=== PATIENT | male | born 1955 | race Caucasian/White ===

== ENCOUNTER 2017-03-28 09:42 | Emergency (ER) | payer SELFPAY ==
[2017-03-28 09:43] VITALS: BP 136/88; PULSE 69; RESP 15; TEMP 36.2; O2SAT 97; BMI 30.5
--- NOTE | 2017-03-28 10:10 | RAD_ITS ---
STUDY: X-RAY CHEST REASON FOR EXAM: Male, 61 years old. Chest pain. Anxiety. TECHNIQUE: Single AP portable view of the chest. COMPARISON: None. FINDINGS: EKG electrodes are seen. The lungs are clear and expanded. There is no demonstrated pleural abnormality. Normal size heart. Normal mediastinum and tosin. Normal visualized pulmonary arteries. Normal visualized aortic arch and descending thoracic aorta. Normal visualized thoracic spine. Normal visualized ribs, clavicles, and shoulders. There is no demonstrated abnormality of the visualized soft tissue structures of the upper abdomen. RAD/Chest 1 View (Portable) IMPRESSION: Normal x-ray examination of the chest. Electronically Signed: Geoff Reed MD at 11:03 EST Tel [phone], Service support ,
--- NOTE | 2017-03-28 10:10 | EKG12_ITS ---
Test Reason : TINGLING Blood Pressure : / mmHG Vent. Rate : 063 BPM Atrial Rate : 063 BPM P-R Int : 164 ms QRS Dur : 112 ms QT Int : 408 ms P-R-T Axes : 047 -28 024 degrees QTc Int : 417 ms Normal sinus rhythm Leftward axis Poor R wave progression Inferior DE, age undetermined, cannot be excluded Confirmed by LILY DINERO, KHALIDA ([id number]), assignment editor ARRON LEHMAN ([id number]) on 03/29/2017 9:49:27 AM Referred By: JERSON Confirmed By:KHALIDA BAUTISTA MD
--- NOTE | 2017-03-28 10:12 | ED.VISSUMM ---
- ER Visit Summary Date of Service: 03/28/17 Chief Complaint: [Shortness of breath, chest tingling, palpitations, anxiety] History of Present Illness: The patient is a 61 M [who presents the emergency department with concern for anxiety. He states over the last 1-2 weeks he has been very anxious about bills. He has not been able to sleep. He is getting less than 2 hours of sleep at night. He said over the last week it has been worse. He is felt palpitations. He has had those before and saw a construction millwright who did an echocardiogram which showed a wall motion abnormality. He had a heart catheterization at [facility] in 2010 which was normal. He continues to have periodic palpitations but this week they have been much worse. Today he had palpitations tingling in his chest and some shortness of breath. He also had severe anxiety. He was supposed to see Dr. Mcconnell this morning for this anxiety and depression. He is not currently on anything but has been on Zoloft and Valium in the past. Also complains of a hoarse voice] Physical Examination: [] Vitals reviewed WN WD NAD PERRL EOMI MMM NECK supple and nontender, no masses RRR no murmur rub or gallop, no peripheral edema, symmetric radial pulses CTAB no respiratory distress ABDOMEN is soft and nontender, normal bowel sounds, no distension, no rebound or guarding SKIN is warm and dry no rashes Alert and Oriented x3, CN II-XII in tact, no motor or sensory deficits, gait normal No lymphadenopathy Test Results: [] Emergency Department Course and Treatment: [EKG is sinus at 61 with no acute ischemic changes. Screening labs are unremarkable. Patient was given Ativan in the emergency department as he has had increased anxiety and felt much better. Chest x-ray was unremarkable. I did repeat a troponin which was normal. Patient was encouraged to follow-up with his primary care doctor given his palpitations and history of skipped heartbeats for possible Holter monitor. He was also encouraged to follow-up for his chest discomfort. I do think his symptoms are likely secondary to anxiety. He was given precautions for which to return. He will be given a short course of Ativan.] Treatment Plan: [] Disposition: [Discharge] Impression: [1. Palpitations 2. Anxiety] This note was generated with Dragon dictation software. It may contain incorrect words, spelling, and punctuation that were not noted in review of the chart prior to signing ED Disposition - Plan for ED Patient: Chief Complaint: Chest Other Referrals: Adam Mcconnell MD [Primary Care Provider] -
[2017-03-28 10:26] LABS: Absolute Lymphocyte Count 2.71 X10^3/ul (0.83-4.51); Absolute Neutrophil Count 3.8 X10^3/uL (2.0-7.7); Basophil# 0.02 X10^3/uL; Basophil% 0.3 % (0-1); Eosinophil# 0.04 X10^3/uL; Eosinophils% 0.5 % (0-5); Hematocrit 42.7 % (40-54); Lymphocyte # 2.71 X10^3/ul (4.0); Lymphocyte % 37.2 % (19-41); Mean Corp Hgb Conc 35.1 g/gl (32-36); Mean Corpuscular Hgb 29.6 pg (27.0-32.0); Mean Corpuscular Volume 84.2 fL (80-94); Mean Platelet Vol. 10.8 fl (6.2-12.0); Monocyte# 0.67 X10^3/uL; Monocyte% 9.2 % (0-10); Neutrophil # 3.84 X10^3/uL (2.7-7.7); Neutrophil % 52.7 % (47-70); Platelet Count 166 K/mm3 (150-450); RBC Distribution Width CV 12.8 % (11.6-14.6); RBC Distribution Width SD 38.9 fl (35.1-43.9); Red Blood Count 5.07 M/mm3 (4.6-6.2); White Blood Count 7.3 K/mm3 (4.4-11.0)
[2017-03-28 10:30] LABS: POSITIVE COUNT NO; POSITIVE DIFFERENTIAL NO; POSITIVE MORPHOLOGY NO
[2017-03-28] MEDS: LORazepam 1 MG Tablet PO (10:46)
[2017-03-28] MEDS: Aspirin 81 MG TAB.CHEW 324 MG PO (10:46)
[2017-03-28 10:47] VITALS: BP 131/86; PULSE 63; RESP 14; O2SAT 95
[2017-03-28] MEDS: 0.9% Normal Saline 1,000 ML 1000 ML IV (10:47)
[2017-03-28 10:50] LABS: Anion Gap 9 (5-15); BUN 14 mg/dL (7-18); BUN/Creat Ratio 15.7 RATIO (10-20); Calcium,Total 9.6 mg/dL (8.5-10.1); Chloride 104 mmol/L (98-107); Creatinine, Serum 0.89 mg/dL (0.70-1.30); EST Glomerular Filtration Rate 92 mL/min (>60); Est Glom Filt Rate - Afr Amer 111 mL/min (>60); Estimated Creatinine Clearance 87.72 ml/min; Glucose 184 mg/dL (74-106); Potassium 3.5 mmol/L (3.5-5.1); Sodium Level 139 mmol/L (136-145); Thyroid Stim Hormone (TSH) 1.42 uIU/mL (0.358-3.74)
[2017-03-28 12:08] VITALS: BP 128/76; PULSE 60; RESP 16; O2SAT 99
--- NOTE | 2017-03-28 13:05 | ED.DEP ---
ED Disposition - Plan for ED Patient: Chief Complaint: Chest Other Instructions: ED Palpitations, ED Stress React Prescriptions: Lorazepam [Ativan] 0.5 mg PO TID PRN PRN 4 Days #12 tablet PRN Reason: Anxiety Referrals: Adam Mcconnell MD [Primary Care Provider] - 3-5 Days
[2017-03-28 13:16] VITALS: BP 116/70; PULSE 69; RESP 20; O2SAT 95
--- NOTE | 2017-03-28 14:59 | CHAPLAIN ---
Type of Pastoral Visit _x__ Initial Visit ___ Follow-up Visit ___ On-call Visit ___ General Patient Visit ___ Spiritual Assessment ___ Family Conference ___ Bereavement ___ Rapid Response ___ Code Blue ___ Other (describe below) Pastoral Care Referral From _x__ Patient ___ Family ___ Nurse ___ Physician ___ Neurophysiology Tech ___ Paste Up Artist Apprentice ___ Other (describe below) Sacrament/Intervention _x__ Active listening ___ Anointing ___ Temple ___ Bereavement ___ Communion _x__ Marguerite exploration ___ ___ Life review _x__ Prayer ___ Reconciliation ___ Sacrament of Sick _x__ Supportive presence ___ Wedding ___ Other (describe below) Pastoral Comments patient says that he has had chest pains, inability to sleep and high anxiety; pt confides in body team member that he has fears about having gone too far away from God; pt says that he wants to be a good Rastafari but has wandered from God and now worries about this all the time;
== END 2017-03-28 13:17 | disposition home or self-care (01) ==
PROVIDERS: Emergency Provider Emergency Medicine; Family Provider Family Medicine; PCP Family Medicine
DX: F41.9 Anxiety disorder, unspecified (principal); R00.2 Palpitations; R07.89 Other chest pain; I10 Essential (primary) hypertension; E78.00 Pure hypercholesterolemia, unspecified; E11.9 Type 2 diabetes mellitus without complications; Z79.84 Long term (current) use of oral hypoglycemic drugs; Z79.82 Long term (current) use of aspirin; Z79.899 Other long term (current) drug therapy
CPT/HCPCS: 71045; 80048; 84443; 84484; 85025; 93005; 96360; 99285; A4216

== ENCOUNTER → 2017-12-30 08:42 | Outpatient (CLI) | payer SELFPAY ==
[2017-12-30 10:35] LABS: Hemoglobin A1c 6.7 % (4.2-6.3)
[2017-12-30 10:51] LABS: ALB/GLOB Ratio 1.2 RATIO (0.9-2.4); AST(SGOT) 17 U/L (15-37); Alanine Aminotransfer ALT/SGPT 28 U/L (16-61); Albumin, Serum 3.9 g/dL (3.2-5.0); Alkaline Phosphatase 57 U/L (45-117); Anion Gap 10 (5-15); BUN 17 mg/dL (7-18); BUN/Creat Ratio 19.3 RATIO (10-20); Calcium,Total 8.6 mg/dL (8.5-10.1); Chloride 103 mmol/L (98-107); Cholesterol 138 mg/dL (200); Creatinine, Serum 0.88 mg/dL (0.70-1.30); EST Glomerular Filtration Rate 92 mL/min (>60); Est Glom Filt Rate - Afr Amer 112 mL/min (>60); Globulin 3.3 g/dL (2.2-4.2); Glucose 110 mg/dL (74-106); High Density Lipoprotein 48 mg/dL; PSA,Total - Annual Screen 3.42 ng/mL (0.00-4.00); Potassium 4.2 mmol/L (3.5-5.1); Protein, Total 7.2 g/dL (6.4-8.2); Sodium Level 139 mmol/L (136-145); Thyroid Stim Hormone (TSH) 1.32 uIU/mL (0.358-3.74); Triglycerides 51 mg/dL; Very Low Density Lipoprotein 10 mg/dL (5-40)
== END ==
PROVIDERS: Family Provider Family Medicine; PCP Family Medicine; Visit Provider Family Medicine
DX: I10 Essential (primary) hypertension (principal); E11.9 Type 2 diabetes mellitus without complications; E78.5 Hyperlipidemia, unspecified; Z12.5 Encounter for screening for malignant neoplasm of prostate
CPT/HCPCS: 36415; 80053; 80061; 83036; 84153; 84443; G0103

== ENCOUNTER → 2018-11-17 08:05 | Outpatient (CLI) | payer MEDICARE, OTHER, SELFPAY ==
[2018-11-17 10:19] LABS: Anion Gap 7 (5-15); BUN 20 mg/dL (7-18); Calcium,Total 9.1 mg/dL (8.5-10.1); Chloride 102 mmol/L (98-107); Cholesterol 184 mg/dL (200); EST Glomerular Filtration Rate 80 mL/min (>60); Est Glom Filt Rate - Afr Amer 97 mL/min (>60); Glucose 121 mg/dL (74-106); High Density Lipoprotein 53 mg/dL; Sodium Level 138 mmol/L (136-145); Thyroid Stim Hormone (TSH) 1.29 uIU/mL (0.358-3.74); Triglycerides 65 mg/dL; Very Low Density Lipoprotein 13 mg/dL (5-40)
== END ==
PROVIDERS: Family Provider Family Medicine; PCP Family Medicine; Referring Provider Family Medicine; Visit Provider Family Medicine
DX: Z00.00 Encounter for general adult medical examination without abnormal findings (principal); E11.9 Type 2 diabetes mellitus without complications
CPT/HCPCS: 36415; 80048; 80061; 84443

== ENCOUNTER → 2019-02-19 16:25 | Outpatient (CLI) | payer MEDICARE, OTHER, SELFPAY ==
[2019-02-19 18:05] LABS: PSA,Total - Annual Screen 3.19 ng/mL (0.00-4.00)
== END ==
PROVIDERS: Family Provider Family Medicine; PCP Family Medicine; Visit Provider Family Medicine
DX: Z00.00 Encounter for general adult medical examination without abnormal findings (principal); Z12.5 Encounter for screening for malignant neoplasm of prostate
CPT/HCPCS: 36415; 84153; G0103

== ENCOUNTER → 2019-08-30 08:34 | Outpatient (CLI) | payer MEDICARE, OTHER, SELFPAY ==
[2019-08-30 10:16] LABS: Anion Gap 4 (5-15); BUN 22 mg/dL (7-18); BUN/Creat Ratio 23.7 RATIO (10-20); Calcium,Total 8.5 mg/dL (8.5-10.1); Chloride 102 mmol/L (98-107); Cholesterol 209 mg/dL (200); Creatinine, Serum 0.93 mg/dL (0.70-1.30); EST Glomerular Filtration Rate 87 mL/min (>60); Est Glom Filt Rate - Afr Amer 105 mL/min (>60); Glucose 145 mg/dL (74-106); High Density Lipoprotein 51 mg/dL; Potassium 3.9 mmol/L (3.5-5.1); Sodium Level 137 mmol/L (136-145); Triglycerides 111 mg/dL; Very Low Density Lipoprotein 22 mg/dL (5-40)
[2019-08-30 10:28] LABS: Microalbumin,Random Urine 10.8 mg/L (NO RANGE EST.)
== END ==
PROVIDERS: PCP Family Medicine; Referring Provider Family Medicine; Visit Provider Family Medicine
DX: E11.9 Type 2 diabetes mellitus without complications (principal); I10 Essential (primary) hypertension
CPT/HCPCS: 36415; 80048; 80061; 82043

== ENCOUNTER → 2020-11-28 09:23 | Outpatient (CLI) | payer MEDICARE, OTHER, SELFPAY ==
[2020-11-28 10:19] LABS: Anion Gap 6 (5-15); BUN 21 mg/dL (7-18); BUN/Creat Ratio 22.1 RATIO (10-20); Calcium,Total 8.7 mg/dL (8.5-10.1); Chloride 104 mmol/L (98-107); Cholesterol 162 mg/dL (200); Creatinine, Serum 0.95 mg/dL (0.70-1.30); EST Glomerular Filtration Rate 84 mL/min (>60); Est Glom Filt Rate - Afr Amer 102 mL/min (>60); Glucose 157 mg/dL (74-106); High Density Lipoprotein 49 mg/dL; Potassium 3.9 mmol/L (3.5-5.1); Sodium Level 137 mmol/L (136-145); Triglycerides 89 mg/dL; Very Low Density Lipoprotein 18 mg/dL (5-40)
[2020-11-28 12:40] LABS: Microalbumin,Random Urine 5.5 mg/L (NO RANGE EST.); Microalbumin:Creatinine Ratio 5.2 mg/g CRE (<30 mg/g CRE)
== END ==
PROVIDERS: PCP Family Medicine; Referring Provider Family Medicine; Visit Provider Family Medicine
DX: E11.9 Type 2 diabetes mellitus without complications (principal)
CPT/HCPCS: 36415; 80048; 80061; 82043; 82570

== ENCOUNTER 2021-05-15 08:46 | Outpatient (CLI) | payer MEDICARE, OTHER, SELFPAY ==
--- NOTE | 2021-05-15 08:54 | RAD_ITS ---
STUDY: XR Elbow Min 3 Views REASON FOR EXAM: Male, 65 years old. PAIN TECHNIQUE: XR Elbow Min 3 Views RIGHT COMPARISON: None. FINDINGS: Normal visualized humerus, radius and ulna. There is degenerative arthrosis of the radiocapitellar and ulnotrochlear articulations. Anterior humeral line and radiocapitellar line are preserved. The soft tissue structures are unremarkable. RAD/Elbow min 3 Views IMPRESSION: There is degenerative arthrosis of the radiocapitellar and ulnotrochlear articulations. Electronically Signed: Herbert Dumont MD at 16:54 EDT ,
== END 2021-05-15 23:59 | disposition home or self-care (01) ==
LOC: MTRAD 08:50
PROVIDERS: PCP Family Medicine; Referring Provider Family Medicine; Visit Provider Family Medicine
DX: M25.521 Pain in right elbow (principal)
CPT/HCPCS: 73080

== ENCOUNTER → 2022-11-25 | Outpatient (CLI) | payer MEDICARE, OTHER, SELFPAY ==
[2022-11-25 10:55] LABS: AST(SGOT) 28 U/L (15-37); Alanine Aminotransfer ALT/SGPT 55 U/L (16-61); Alkaline Phosphatase 71 U/L (45-117); Anion Gap 7 (5-15); BUN 22 mg/dL (7-18); BUN/Creat Ratio 19.8 RATIO (10-20); Calcium,Total 9.1 mg/dL (8.5-10.1); Chloride 104 mmol/L (98-107); Cholesterol 178 mg/dL (200); Creatinine, Serum 1.11 mg/dL (0.70-1.30); EST Glomerular Filtration Rate 70 mL/min (>60); Est Glom Filt Rate - Afr Amer 84 mL/min (>60); Globulin 4.2 g/dL (2.2-4.2); Glucose 160 mg/dL (74-106); High Density Lipoprotein 54 mg/dL; Potassium 4.1 mmol/L (3.5-5.1); Protein, Total 8.2 g/dL (6.4-8.2); Sodium Level 137 mmol/L (136-145); Triglycerides 129 mg/dL; Very Low Density Lipoprotein 26 mg/dL (5-40)
[2022-11-25 11:59] LABS: Microalbumin,Random Urine 64.5 mg/L (NO RANGE EST.); Microalbumin:Creatinine Ratio 20.9 mg/g CRE (<30 mg/g CRE)
== END | disposition home or self-care (01) ==
LOC: MFPLAB 08:35
PROVIDERS: PCP Family Medicine; Visit Provider Family Medicine
DX: E11.9 Type 2 diabetes mellitus without complications (principal)
CPT/HCPCS: 36415; 80053; 80061; 82043; 82570

== ENCOUNTER 2023-03-08 12:58 | Emergency (ER) | payer MEDICARE, OTHER, SELFPAY ==
[2023-03-08 12:58] VITALS: BP 167/82; PULSE 65; RESP 16; TEMP 35.7; O2SAT 99; BMI 29.0
--- NOTE | 2023-03-08 13:09 | EKG12_ITS ---
Test Reason : CHEST PAIN Blood Pressure : / mmHG Vent. Rate : 064 BPM Atrial Rate : 064 BPM P-R Int : 174 ms QRS Dur : 106 ms QT Int : 420 ms P-R-T Axes : -05 -27 035 degrees QTc Int : 433 ms Normal sinus rhythm Normal ECG Confirmed by ALECIA DINERO, LARA ([id number]), editorial specialist AUDREY HARRIS ([id number]) on 03/09/2023 9:25:19 AM Referred By: Nomi Atkinson Confirmed By:LARA ALSTON MD
--- NOTE | 2023-03-08 13:15 | RAD_ITS ---
STUDY: X-RAY CHEST REASON FOR EXAM: Male, 67 years old. Chest pain TECHNIQUE: Single AP portable view of the chest. COMPARISON: None. FINDINGS: EKG electrodes are seen. The lungs are clear and expanded. There is no demonstrated pleural abnormality. Normal size heart. Normal mediastinum and tosin. Normal visualized pulmonary arteries. Normal visualized aortic arch and descending thoracic aorta. There are degenerative changes of the visualized thoracic spine. Normal visualized ribs, clavicles, and shoulders. There is no demonstrated abnormality of the visualized soft tissue structures of the upper abdomen. RAD/Chest 1 View (Portable) IMPRESSION: Normal x-ray examination of the chest. Electronically Signed: Geoff Reed MD at 13:39 EST ,
[2023-03-08 13:23] LABS: Absolute Neutrophil Count 7.3 X10^3/uL (2.0-7.7); Basophil# 0.02 X10^3/uL; Basophil% 0.2 % (0-1); Eosinophil# 0.06 X10^3/uL; Eosinophils% 0.5 % (0-5); Hematocrit 47.3 % (40-54); Hemoglobin 15.5 g/dL (13.0-16.5); Lymphocyte % 26.2 % (19-41); Mean Corp Hgb Conc 32.8 g/dL (32-36); Mean Corpuscular Volume 88.4 fL (80-94); Mean Platelet Vol. 11.1 fl (6.2-12.0); Monocyte% 7.2 % (0-10); NRBC Flagged by Analyzer 0 % (0-5); Neutrophil # 7.27 X10^3/uL (2.7-7.7); Neutrophil % 65.6 % (47-70); Platelet Count 221 K/mm3 (150-450); RBC Distribution Width CV 12.7 % (11.6-14.6); RBC Distribution Width SD 41.1 fl (35.1-43.9); Red Blood Count 5.35 M/mm3 (4.6-6.2); White Blood Count 11.1 K/mm3 (4.4-11.0)
--- NOTE | 2023-03-08 13:27 | ED.VIS.CHEST ---
HPI History of Present Illness Chief Complaint: Chest Pain Detail of Chief Complaint: Intermittent atypical, nonexertional chest pain last 3 days. Informant: patient Onset/Context/Timing Onset: Days Activity at onset: gradual Timing: Intermittent Quality: Positive for Dull Current Severity: Gone Maximum Severity: Mild Relieved By: Nothing Associated Symptoms: Negative for Nausea, Vomiting, Diaphoresis, Dyspnea, Cough, Fever, Lightheadedness, Acid Reflux or Palpitations Narrative Narrative: 67-year-old male had a prior cardiac catheterization 12 years ago which she states was normal. His mom had open heart surgery for valve surgery and she did have cardiac stents. He has a history of hypertension and type 2 diabetes. Non-smoker. States the last 3 days has had intermittent nonexertional chest pain. No associated nausea, dyspnea or diaphoresis. No leg pain or swelling. No history of DVT or PE risk factors. Prior Similar Symptoms: No Recent Illness/Hospitalization: No CVD Risk Factors: Positive for Hypertension and Diabetes; Negative for Smoking PE Risk Factors: Negative for Recent Travel/Surgery, Recent Immobilization, Prior DVT or PE, Cancer or OCP + Smoking + >/=35 TAD Risk Factors: Negative for Marfan's Syndrome, Hypertension or Family History PFSH PFS Home Medications aspirin 81 mg chewable tablet 81 mg PO DAILY@0800 03/28/17 [History Last Taken Unknown] lisinopril 10 mg tablet (Zestril) 10 mg PO DAILY 03/28/17 [History Last Taken Unknown] lorazepam 0.5 mg tablet 0.5 mg PO TID PRN PRN Anxiety 4 days #12 tabs 03/28/17 [Rx Last Taken Unknown] metformin 1,000 mg tablet 1,000 mg PO BID 03/28/17 [History Last Taken Unknown] metoprolol succinate 50 mg tablet,extended release 24 hr (Toprol XL) 50 mg PO BID 03/28/17 [History Last Taken Unknown] omega-3 fatty acids-fish oil 340 mg-1,000 mg capsule (Fish Oil) 1 ea PO BID 03/28/17 [History Last Taken Unknown] omeprazole 20 mg capsule,delayed release 20 mg PO DAILY 03/28/17 [History Last Taken Unknown] saw palmetto 160 mg capsule 160 mg PO DAILY 03/28/17 [History Last Taken Unknown] simvastatin 80 mg tablet 80 mg PO DAILY 03/28/17 [History Last Taken Unknown] Allergy/AdvReac Type Severity Reaction Status Date / Time No Known Allergies Allergy Verified 03/28/17 09:48 Social History Smoking Status: Former smoker ROS ROS ED ROS Narrative Atypical nonexertional chest pain. Review of Systems ROS Unobtainable: Denies due to encephalopathy Constitutional Constitutional ED: Denies chills or fever(s) Eyes Eyes: Reports none ENT ENT ED: Denies ear pain Cardiovascular Cardiovascular: Reports as per HPI and chest pain; Denies orthopnea, palpitations, paroxysmal nocturnal dyspnea or racing heartbeat Respiratory/Chest Respiratory/Chest: Denies cough, dyspnea, dyspnea on exertion, orthopnea, paroxysmal nocturnal dyspnea or sputum Gastrointestinal Gastrointestinal: Denies abdominal pain Genitourinary Genitourinary ED: Denies dysuria or hematuria Musculoskeletal Musculoskeletal: Denies arthralgias or back pain Integumentary Denies abscess Neurologic Neurologic: Denies headache(s) Psychiatric Psychiatric: Denies anxiety or depression Endocrine Endocrinology: Denies cold intolerance Hematologic/Lymphatic Hematologic/Lymphatic: Denies easy bleeding or easy bruising Allergic/Immunologic Allergic/Immunologic ED: Denies mouth swelling or tongue swelling EXAM Physical Exam Narrative Exam Narrative: Well-appearing 67-year-old male. Vital signs stable afebrile. Pulse ox 99% on room air no signs hypoxia. He sitting upright in bed. Currently symptom-free. H EENT exam unremarkable. Neck nontender. Lungs clear to auscultation bilaterally. Heart regular rhythm rate about 65 no murmur. Chest wall nontender. No crepitance. No subcu air. No reproducible pain. Abdomen soft nontender normal bowel sounds no peritoneal signs. Moving all 4 extremities. Calves are nontender without edema or cords. Normal dorsi plantarflexion. Normal transportation worker strength. Equal symmetrical radial pulses. Back nontender. Neurologically is awake and alert with no focal motor deficits. Benign exam. Const Vital Signs: 03/08/23 12:58 03/08/23 13:00 03/08/23 13:12 Temperature 96.2 F L Temperature Source Temporal Pulse Rate 65 Respiratory Rate 16 Respiratory Effort Normal Blood Pressure 167/82 H Blood Pressure Mean 110 Pulse Ox 99 Oxygen Delivery Method Room Air Room Air 03/08/23 15:04 Temperature Temperature Source Pulse Rate 69 Respiratory Rate 16 Respiratory Effort Blood Pressure Blood Pressure Mean Pulse Ox 97 Oxygen Delivery Method Room Air Positive well nourished and well developed; Negative for cachectic, contractures or unkempt General Appearance ED: well developed and NAD; Negative for unkempt, cachectic, contractures or pallor Nutritional Appearance: Negative for cachectic HEENT Reports moist mucous membranes normocephalic and atraumatic; Negative for trauma or tenderness Eyes PERRL and EOMs intact bilaterally General Eye ED: Negative for pale conjunctiva or scleral icterus Neck no lymphadenopathy, supple and no JVD General: Negative for tenderness Chest Wall inspection of chest normal and palpation of chest normal Chest: Negative for tenderness Resp normal respiratory effort and clear to auscultation bilaterally Effort and Inspection: Negative for respiratory distress Auscultation: Negative for rales, rhonchi or wheezes Cardio regular rate, regular rhythm, S1 normal heart sound, S2 normal heart sound and no murmurs Rate: Negative for bradycardia or tachycardic Rhythm: Negative for abnormal rhythm GI normal to inspection, nondistended, normoactive bowel sounds, soft to palpation, non-tender, non-distended and no masses Back/Spine no CVA tenderness and no thoracic nor lumbar tenderness General Back: Negative for CVA tenderness Cervical Spine: Negative for cervical spine tenderness Extremity normal to inspection General Extremety ED: Negative for edema, pulses abnormal or tenderness General Extremity: Negative for edema or pulses abnormal Neuro oriented x3 and CN's II-XII intact bilaterally Sensorium / Orientation: awake, alert, oriented to person, oriented to place and oriented to time; Negative for confused, lethargic or stuporous Motor Exam: strength 5/5 throughout Psych mental status grossly normal Appearance: Negative for unkempt Attitude: No agitated Mood & Affect: Negative for depressed, anxious or tearful Skin no rashes or lesions noted and no wounds General Skin Exam: Negative for jaundice or pallor Rashes: No rashes noted Trauma: Negative for abrasion, laceration or puncture Heart Score History: Slightly/Non-Suspicious ECG: Normal Age: >/= 65 years Risk Factors: 1 or 2 Risk Factors Troponin: </= Normal Limit Score: 3 MDM MDM MDM Narrative Medical decision making narrative: 67-year-old male with atypical, nonexertional, nonreproducible chest pain. Undergo cardiac workup with a 2-hour troponin. His exam is benign. His initial EKG is unremarkable as is his chest x-ray. Repeat exam patient doing well at 2:40 PM. Patient I discussed his test results so far. 2-hour troponin at this negative be discharged home with atypical chest pain with outpatient follow-up. Patient doing well at 3:48 PM. As well as a second troponin returns and is normal will be discharged home. History & Record Review Discussion w/independent historian: Patient Additional record(s) reviewed:: Prior inpatient record, Prior outpatient record, Prior ED visit, Prior labs and No prior records Lab Data Attestation: I reviewed the patient's lab results. Lab results narrative: CBC shows a white count of 11.1. H&H of 15 and 47. Platelets 221. Chemistries show gap of 7. BUN and creatinine are 19 and 1.2. Glucose 115. Troponin is normal at 7. 2-hour troponin is 5. Labs: Laboratory Results - last 24 hr 03/08/23 03/08/23 13:04 15:20 WBC 11.1 H RBC 5.35 Hgb 15.5 Hct 47.3 MCV 88.4 MCH 29.0 MCHC 32.8 RDW Std Deviation 41.1 RDW Coeff of Aneesh 12.7 Plt Count 221 MPV 11.1 Immature Gran % (Auto) 0.300 Neut % (Auto) 65.6 Lymph % (Auto) 26.2 [place] % (Auto) 7.2 Eos % (Auto) 0.5 Baso % (Auto) 0.2 Absolute Neuts (auto) 7.3 Absolute Lymphs (auto) 2.90 Nucleated RBC % 0 Sodium 136 Potassium 3.5 Chloride 101 Carbon Dioxide 28.0 Anion Gap 7 BUN 19 H Creatinine 1.25 Estim Creat Clear Calc 63.47 Est GFR (MDRD) Af Amer 74 Est GFR (MDRD) Non-Af 61 BUN/Creatinine Ratio 15.2 Glucose 115 H Calcium 10.0 Troponin I High Sens 7 5 Radiography Chest X-Ray - ED: 1 View, Read by ED Physician, Heart, Lungs, Mediastinum, Bony Structures, No Acute Disease and Chronic Changes Diagnostic Testing: Clinical Impression(s) from Imaging Studies Chest X-Ray 03/08/23 13:15 IMPRESSION: Normal x-ray examination of the chest. Electronically Signed: Geoff Reed MD at 13:39 EST , Chest x-ray, portable, single view, interpreted by myself shows no acute abnormality. Normal cardiac silhouette. Normal mediastinum. Normal lung reza. Also read by the radiologist and agrees. Rhythm Strip Rhythm Strip: Sinus Rhythm Rate: 64 Ectopy: None EKG Initial EKG: Attestation: I personally reviewed and interpreted this EKG as follows: Interpretation: Sinus Rhythm and No Acute Injury Pattern Comments: Normal sinus rhythm rate of 64 no acute signs of [place], nor ischemia, nor dysrhythmia. Prior EKG tracings: not available for review Discharge Plan Triage Chief Complaint: Chest Pain ED Provider: Nomi Atkinson Dx/Rx/DC Orders Clinical Impression: History of hypertension, History of diabetes mellitus, Chest pain Instructions: ED Chest Pain, Uncertain Cause Prescriptions: No Action metoprolol succinate [Toprol XL] 50 MG tablet extended release 24 hr 50 mg PO BID simvastatin 80 MG tablet 80 mg PO DAILY saw palmetto 160 MG capsule 160 mg PO DAILY metformin 1,000 MG tablet 1,000 mg PO BID lisinopril [Zestril] 10 MG tablet 10 mg PO DAILY omeprazole 20 MG capsule 20 mg PO DAILY aspirin 81 MG tablet,chewable 81 mg PO DAILY@0800 omega-3 fatty acids-fish oil [Fish Oil] 1 EACH capsule 1 ea PO BID lorazepam 0.5 MG tablet 0.5 mg PO TID PRN PRN (Reason: Anxiety) 4 Days Qty: 12 0RF Primary Care Provider: Adam Mcconnell Referrals: Adam Mcconnell MD [Primary Care Provider] - 3-5 Days Activity Restrictions/Additional Instructions: Your labs, heart enzymes, chest x-ray and EKG are unremarkable. Follow-up with your primary care physician for further evaluation. We do not have a specific cause for this chest pain. You and him can discuss if he feels you need an outpatient stress test. Return to the Disposition Disposition: Home, Self Care Capacity Legal [employer] Reflex Medical hold order details:: IF a medical hold is selected below, a suggested order for a MEDICAL HOLD will reflex upon signing the document. Next of kin: [place] law dictates a PRIORITY LIST for identifying legal decision-maker/legal next of kin in the following order (LNOK): 1st: The patient?s legal guardian, if any 2nd: The patient's spouse (if status is questionable, consult Risk Management) 3rd: The patient?s adult child(deana) (majority, if multiple children) 4th: The patient?s parents 5th: The patient?s adult siblings (majority, if multiple children siblings)
[2023-03-08 13:40] LABS: Anion Gap 7 (5-15); BUN 19 mg/dL (7-18); BUN/Creat Ratio 15.2 RATIO (10-20); Chloride 101 mmol/L (98-107); Creatinine, Serum 1.25 mg/dL (0.70-1.30); EST Glomerular Filtration Rate 61 mL/min (>60); Est Glom Filt Rate - Afr Amer 74 mL/min (>60); Estimated Creatinine Clearance 63.47 ml/min; Glucose 115 mg/dL (74-106); Potassium 3.5 mmol/L (3.5-5.1); Sodium Level 136 mmol/L (136-145); Troponin-I HS 7 pg/mL (3.0-78.0)
[2023-03-08 15:04] VITALS: PULSE 69; RESP 16; O2SAT 97
[2023-03-08 15:50] LABS: Troponin-I HS 5 pg/mL (3.0-78.0)
--- NOTE | 2023-03-08 15:57 | CHAPLAIN ---
Type of Pastoral Visit _x__ Initial Visit ___ Follow-up Visit ___ On-call Visit ___ General Patient Visit ___ Spiritual Assessment ___ Family Conference ___ Bereavement ___ Rapid Response ___ Code Blue ___ Other (describe below) Pastoral Care Referral From _x__ Patient ___ Family ___ Nurse ___ Physician ___ Cook Vegetable ___ Geology Professor ___ Other (describe below) Sacrament/Intervention _x__ Active listening ___ Anointing ___ Adventist ___ Bereavement ___ Communion _x__ Marguerite exploration ___ _x__ Life review _x__ Prayer ___ Reconciliation ___ Sacrament of Sick _x__ Supportive presence ___ Wedding ___ Other (describe below) Pastoral Comments RN contacted this clinical research spec at request of this patient who wanted to have spiritual care support; pt has been seen before by this clinical research spec; pt asks for specific spiritual care help as he is dealing with many emotions, thoughts, and anxiety of a spiritual nature; pt expresses his thoughts and concerns; pt is offered time, listening, and processing of his thoughts; pt is seeking understanding and hope which is offered through this supportive encounter; prayers are given for assurance and for spiritual care; this clinical research spec will follow up tomorrow with pt if he is admitted; pt speaks words of thanks for the time given
[2023-03-08 16:07] VITALS: BP 146/80; PULSE 68; RESP 16; O2SAT 99
== END 2023-03-08 16:09 | disposition home or self-care (01) ==
PROVIDERS: Emergency Provider Emergency Medicine; PCP Family Medicine; Referring Provider Emergency Medicine; Visit Provider Emergency Medicine
DX: R07.89 Other chest pain (principal); E11.9 Type 2 diabetes mellitus without complications; I10 Essential (primary) hypertension; Z79.82 Long term (current) use of aspirin; Z79.84 Long term (current) use of oral hypoglycemic drugs; Z79.899 Other long term (current) drug therapy; Z87.891 Personal history of nicotine dependence; Z82.49 Family history of ischemic heart disease and other diseases of the circulatory system
CPT/HCPCS: 71045; 80048; 84484; 85025; 93005; 99284; A4216

== ENCOUNTER → 2023-04-04 | Outpatient (CLI) | payer MEDICARE, OTHER, SELFPAY ==
--- NOTE | 2023-04-04 | LES_PTH ---
PATHOLOGY RESULTS PATIENT: REJI CURIEL LOC: [facility] U#:[id number] AGE/SX: 67/M ROOM: RE04/04/[address]: Dr. 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 AM:diane 04/05/2023 COMMENT Case has been reviewed in consultation with Dr. Dan who concurs with the above diagnosis. IDC:SJ MICROSCOPIC DESCRIPTION Slides are reviewed. GROSS DESCRIPTION Received is one container labeled with the patient's name and not further designated. The specimen consists of a machado-white skin ellipse measuring 1.5 x 1.0 cm and up to 0.5 cm in thickness. The specimen is inked, serially sectioned and submitted entirely in one cassette. / ZORAN:diane 04/04/2023 TC:0 CPT: 01685
== END | disposition home or self-care (01) ==
LOC: LABSPEC 11:26
PROVIDERS: PCP Family Medicine; Referring Provider Family Medicine; Visit Provider Family Medicine
DX: D04.61 Carcinoma in situ of skin of right upper limb, including shoulder (principal)
CPT/HCPCS: 88305

== ENCOUNTER → 2023-05-09 | Outpatient (CLI) | payer MEDICARE, OTHER, SELFPAY ==
--- NOTE | 2023-05-09 10:13 | STRESSREP ---
Stress Test Report Exercise myocardial perfusion stress test. 67-year-old man with a history of chest pain Stress protocol: Resting EKG demonstrates sinus bradycardia with a rate of 55 bpm resting blood pressure is 142/76 mmHg. The patient exercised according to the regular Anderson protocol for a total duration of 9 minutes attaining a maximum heart rate of 129 bpm which was 85% of maximum predicted heart rate; the maximum workload was 10.1 metabolic equivalents. At rest there were no ST or T wave changes noted to suggest ischemia and at peak exercise upsloping ST changes only were noted which did not meet the criteria for ischemia. No clinical angina was noted the test was terminated due to the target heart rate being achieved/fatigue. The peak blood pressure was 162/70 mmHg. Rate-pressure product was 17,800. Myocardial perfusion protocol. 11.2 mCi of technetium 99m sestamibi was injected at rest. The patient exercised according to regular Anderson protocol for total duration of 9 minutes and at peak exercise 34.2 mCi of technetium 99m sestamibi was injected stress images were obtained stress and rest images were reconstructed in comparing the short axis vertical long and horizontal long axis. Gated images were also obtained. Perfusion SPECT analysis: Review of the stress images demonstrate normal uptake of tracer noted in all areas of the myocardium. The resting images similarly demonstrate normal uptake of tracer noted in all areas of the myocardium. No areas of reversibility are noted to suggest ischemia no previous infarct was noted. Gated SPECT analysis: The gated ejection fraction is 47%. Conclusion: Normal exercise myocardial perfusion stress test at a high workload Low normal ejection fraction.
== END | disposition home or self-care (01) ==
LOC: CVS 06:31
PROVIDERS: PCP Family Medicine; Referring Provider Family Medicine; Visit Provider Family Medicine
DX: R07.89 Other chest pain (principal)
CPT/HCPCS: 78452; 93017; A9500; A4216

== ENCOUNTER → 2023-11-03 | Outpatient (CLI) | payer MEDICARE, OTHER, SELFPAY ==
[2023-11-03 12:14] LABS: Color, Urine Yellow (Yellow); Glucose, Dipstick Normal (Normal); Ketone-Dipstick Negative (Negative); Leukocyte Esterase-Dipstick Negative /ul (Negative); Nitrite-Dipstick Negative (Negative); Occult Blood-Urine Negative /ul (Negative); Protein-Dipstick Negative (Negative); Specific Gravity, Urine 1.005 (1.002-1.030); Urine Bilirubin Dipstick Negative (Negative); Urine Clarity Clear (Clear); Urine Urobilinogen Normal (Normal)
[2023-11-03 12:49] LABS: Hemoglobin A1c 6.3 % (3.8-5.6)
[2023-11-03 13:09] LABS: Creatinine, Urine (random) < 13.00 mg/dL (NO RANGE EST.); Microalbumin,Random Urine < 5.0 mg/L (NO RANGE EST.)
[2023-11-03 16:07] LABS: ALB/GLOB Ratio 1.1 RATIO (0.9-2.4); AST(SGOT) 26 U/L (15-37); Alanine Aminotransfer ALT/SGPT 35 U/L (16-61); Albumin, Serum 3.9 g/dL (3.2-5.0); Alkaline Phosphatase 65 U/L (45-117); Anion Gap 8 (5-15); BUN 14 mg/dL (7-18); BUN/Creat Ratio 13.1 RATIO (10-20); Calcium,Total 9.5 mg/dL (8.5-10.1); Chloride 102 mmol/L (98-107); Cholesterol 163 mg/dL (200); Creatinine, Serum 1.07 mg/dL (0.70-1.30); EST Glomerular Filtration Rate 73 mL/min (>60); Est Glom Filt Rate - Afr Amer 88 mL/min (>60); Globulin 3.7 g/dL (2.2-4.2); Glucose 116 mg/dL (74-106); High Density Lipoprotein 59 mg/dL; Protein, Total 7.6 g/dL (6.4-8.2); Sodium Level 137 mmol/L (136-145); Triglycerides 88 mg/dL; Very Low Density Lipoprotein 18 mg/dL (5-40)
== END | disposition home or self-care (01) ==
LOC: MFPLAB 11:26
PROVIDERS: PCP Family Medicine; Visit Provider Family Medicine
DX: E11.9 Type 2 diabetes mellitus without complications (principal); N40.0 Benign prostatic hyperplasia without lower urinary tract symptoms; Z12.5 Encounter for screening for malignant neoplasm of prostate
CPT/HCPCS: 36415; 80053; 80061; 81002; 82043; 82570; 83036; 84153; G0103

== ENCOUNTER → 2023-11-17 | Outpatient (CLI) | payer MEDICARE, OTHER, SELFPAY ==
[2023-11-19 08:12] LABS: PSA, Free 1.97 ng/mL; PSA, Free % 16.7 % (.)
== END | disposition home or self-care (01) ==
LOC: LAB 15:41
PROVIDERS: PCP Family Medicine; Referring Provider Nurse Practitioner; Visit Provider Nurse Practitioner
DX: R97.20 Elevated prostate specific antigen [PSA] (principal)
CPT/HCPCS: 36415; 84153; 84154

== ENCOUNTER → 2024-02-03 | Outpatient (CLI) | payer MEDICARE, OTHER, SELFPAY ==
[2024-02-03 10:36] LABS: Hemoglobin A1c 6.6 % (3.8-5.6)
[2024-02-03 10:38] LABS: ALB/GLOB Ratio 1.1 RATIO (0.9-2.4); AST(SGOT) 17 U/L (15-37); Alanine Aminotransfer ALT/SGPT 36 U/L (16-61); Albumin, Serum 3.9 g/dL (3.2-5.0); Alkaline Phosphatase 68 U/L (45-117); Anion Gap 8 (5-15); BUN 18 mg/dL (7-18); BUN/Creat Ratio 18.2 RATIO (10-20); Calcium,Total 9.3 mg/dL (8.5-10.1); Chloride 102 mmol/L (98-107); Cholesterol 148 mg/dL (200); Creatinine, Serum 0.99 mg/dL (0.70-1.30); EST Glomerular Filtration Rate 80 mL/min (>60); Est Glom Filt Rate - Afr Amer 96 mL/min (>60); Globulin 3.5 g/dL (2.2-4.2); Glucose 138 mg/dL (74-106); High Density Lipoprotein 44 mg/dL; Potassium 4.2 mmol/L (3.5-5.1); Protein, Total 7.4 g/dL (6.4-8.2); Sodium Level 137 mmol/L (136-145); Triglycerides 111 mg/dL; Very Low Density Lipoprotein 22 mg/dL (5-40)
[2024-02-03 11:44] LABS: Microalbumin,Random Urine 10.2 mg/L (NO RANGE EST.)
== END | disposition home or self-care (01) ==
LOC: MFPLAB 08:38
PROVIDERS: PCP Family Medicine; Referring Provider Family Medicine; Visit Provider Family Medicine
DX: E11.9 Type 2 diabetes mellitus without complications (principal)
CPT/HCPCS: 36415; 80053; 80061; 82043; 82570; 83036

== ENCOUNTER → 2024-05-17 | Outpatient (CLI) | payer MEDICARE, OTHER, SELFPAY ==
[2024-05-18 13:07] LABS: PSA, Free 0.67 ng/mL; PSA, Free % 14.7 % (.)
== END | disposition home or self-care (01) ==
LOC: LAB 08:30
PROVIDERS: PCP Family Medicine; Referring Provider Urology; Visit Provider Urology
DX: R97.20 Elevated prostate specific antigen [PSA] (principal)
CPT/HCPCS: 36415; 84153; 84154

== ENCOUNTER → 2024-06-07 | Outpatient (CLI) | payer MEDICARE, OTHER, SELFPAY ==
--- NOTE | 2024-06-07 09:05 | TISS_PTH ---
PATIENT: REJI CURIEL LOC: [facility] U#:[id number] AGE/SX: 68/M ROOM: RE06/07/[address]: Dr. Que Camp MD : 1955 BED: DIS: 06/07/2024 SPEC #: [id number] RECD: 06/07/24 10:06 STATUS: LOGAN GRACIA #: [id number] MACKENZIE: 06/07/24 09:[address]: Que Camp DEPT: SURGICAL PATHOLOGY RECD BY: Luis Carlos Logan ENTERED: 06/07/24 11:36 SP TYPE: Tissue Bx LISANDRO DR: Dr. Adam Mcconnell MD Tissues: A - Thumb, NOS Procedures: Surgery Specimen Level IV HEADER OPERATION: Right thumb biopsy PRE-OP DIAGNOSIS: Right thumb TISSUE SUBMITTED: A- Right thumb MICROSCOPIC DIAGNOSIS A. Skin, right thumb, shave biopsy: * Squamous cell carcinoma in-situ (See note) Note: The lesion extends to the peripheral resection edges MICROSCOPIC DESCRIPTION Slides are reviewed. GROSS DESCRIPTION A. Received in formalin in a container labeled with the patient's name, date of , and right thumb biopsy is an unoriented and irregular skin shave measuring 0.6 x 0.3 cm with a depth of 0.1 cm. The white-aguilar epidermis is hairbearing and diffusely roughened, but otherwise unremarkable. The deep margin is inked green, and it is bisected to reveal white-aguilar surfaces. Submitted entirely in A1. [facility] 06/12/2024
== END | disposition home or self-care (01) ==
LOC: LABSPEC 11:01
PROVIDERS: PCP Family Medicine; Referring Provider Surgery Plastic and Reconstructive Surgery; Visit Provider Surgery Plastic and Reconstructive Surgery
DX: C76.41 Malignant neoplasm of right upper limb (principal)
CPT/HCPCS: 88305

== ENCOUNTER 2024-06-26 05:53 | Day surgery (SDC) | payer MEDICARE, OTHER, SELFPAY ==
--- NOTE | 2024-06-26 06:22 | PCM.HP.STD ---
HPI - General HPI Narrative Monroe Yates is a delightful 5-year-old male with history of nonmelanoma skin cancers who presents today for a right thumb neoplasm that has not yet been biopsied. It has been present for approximately 1 year. Patient has type 2 diabetes on metformin. His last A1c was 7 on 04 May 2024. He is not a smoker. He does not have any new lumps or bumps in the right upper extremity. He is not on any blood thinner. He does not have a history of bleeding or clotting problems personally or in his family. No history of problems with anesthesia 16 June 2024: Doing well overall. 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 Current Encounter (DATE OF SURGERY H&P UPDATE): I saw and examined the patient this morning in pre-operative holding. We discussed risks and benefits of today's surgery and they would like to proceed. NO CHANGE in health history since last seen and evaluated. Ready to proceed with surgery. [facility] Medical History Skin cancer High blood pressure Diabetes Fatigue PND (post-nasal drip) Home Medications ?Medication ?Instructions ?Recorded ?Last Taken ?Type lisinopril 10 mg tablet (Zestril) 10 mg PO DAILY 03/28/17 06/26/24 History metformin 1,000 mg tablet 1,000 mg PO BID 03/28/17 06/26/24 History metoprolol succinate 50 mg 50 mg PO BID 03/28/17 06/26/24 History tablet,extended release 24 hr (Toprol XL) omega-3 fatty acids-fish oil 340 1 ea PO BID 03/28/17 Unknown History mg-1,000 mg capsule (Fish Oil) omeprazole 20 mg capsule,delayed 20 mg PO DAILY 03/28/17 06/25/24 History release simvastatin 80 mg tablet 80 mg PO DAILY 03/28/17 06/25/24 History clonazepam 1 mg tablet mg PO 06/06/24 Unknown History donepezil 10 mg tablet mg PO 06/06/24 06/26/24 History glimepiride 4 mg tablet mg PO 06/06/24 06/26/24 History nortriptyline 25 mg capsule mg PO 06/06/24 06/25/24 History sertraline 50 mg tablet mg PO 06/06/24 06/25/24 History sildenafil 50 mg tablet mg PO 06/06/24 Unknown History oxycodone 5 mg tablet 5 mg PO BID PRN pain 5 days #10 06/26/24 Unknown Rx tabs Allergy/AdvReac Type Severity Reaction Status Date / Time No Known Allergies Allergy Verified 06/15/24 08:42 Social History Smoking Status: Former smoker Vital Signs Vital Signs Vital Signs: 06/26/24 06:18 Respiratory Pattern Normal Physical Exam Narrative Right Upper Extremity Inspection: Right thumb with dorsal scaly lesion over the thumb metacarpal, approximately one by one cm. Biopsy site healing well, no signs of infection. Palpation: Skin in the area is mobile. Wound from lesion excision would likely close primarily (if no margins) Motor: Able to bend and extend all MP, PIP, and DIP joints. Sensory: Intact to light touch on the radial and ulnar borders. Vascular: Finger tips are warm and well perfused with <2 second capillary refill. No axillary or epitrochlear lymphadenopathy Results Lab / Micro Data Lab results narrative: OPERATION: Right thumb biopsy PRE-OP DIAGNOSIS: Right thumb TISSUE SUBMITTED: A- Right thumb MICROSCOPIC DIAGNOSIS A. Skin, right thumb, shave biopsy: ? Squamous cell carcinoma in-situ (See note) Note: The lesion extends to the peripheral resection edges MICROSCOPIC DESCRIPTION Slides are reviewed. GROSS DESCRIPTION A. Received in formalin in a container labeled with the patient's name, date of , and right thumb biopsy is an unoriented and irregular skin shave measuring 0.6 x 0.3 cm with a depth of 0.1 cm. The white-aguilar epidermis is hairbearing and diffusely roughened, but otherwise unremarkable. The deep margin is inked green, and it is bisected to reveal white-aguilar surfaces. Submitted entirely in A1. [facility] 06/16/2024 Electronically Signed by: Dr. Dr. 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 The benefits and alternatives of this surgery were also discussed. We discussed the option of Moh's surgery or the option of nonsurgical treatments versus wide local excision of the squamous cell carcinoma in situ. All of their questions were answered, and they agreed to proceed with surgery, which will be wide local excision with 4 mm margins around the lesion with frozen sections. Will place temporary dressing (cadaver skin with bolster) following excision and await permanent section results. Once cleared, plan for skin graft. Patient happy with the plan. INTERVAL H&P PLAN, DATE OF SURGERY: We will proceed with surgery today.
[2024-06-26 06:26] VITALS: BP 134/87; PULSE 58; RESP 16; TEMP 36.3; O2SAT 99; BMI 27.9
[2024-06-26] MEDS: Cephalexin 500 MG Capsule PO (07:11)
--- NOTE | 2024-06-26 07:30 | LES_PTH ---
PATIENT: REJI CURIEL [place] [facility] [id number] AGE/SX: 68/M ROOM: RE06/26/[address]: Dr. Que Camp MD : [id number] BED: DIS: 06/26/2024 SPEC #: [id number] RECD: 06/26/24 08:01 STATUS: LOGAN REFauzia #: [id number] MACKENZIE: 06/26/24 07:[address]: Que Camp DEPT: SURGICAL PATHOLOGY RECD BY: Evan Loja ENTERED: 06/26/24 09:41 SP TYPE: Lesion OTHR DR: Dr. Adam Mcconnell MD Tissues: A - Skin of thumb, NOS Procedures: Frozen Section (charge) Surgery Specimen Level IV HEADER OPERATION: Excision of right thumb, squamous cell carcinoma in situ, frozen section PRE-OP DIAGNOSIS: Squamous cell carcinoma, right thumb TISSUE SUBMITTED: A- Squamous cell carcinoma right thumb *short stitch- proximal, long stitch- radial* FROZEN SECTION DIAGNOSIS A. Right thumb, excision: Squamous cell carcinoma in situ, margins free. Actinic keratosis is noted at the periphery. MS/mr 06/26/2024 MICROSCOPIC DIAGNOSIS A. Skin, right thumb, squamous cell carcinoma, excision: * Squamous cell carcinoma in situ, surgical margins free. MICROSCOPIC DESCRIPTION Slides are reviewed. GROSS DESCRIPTION A. Received fresh for intraoperative consultation in a container labeled with the patient's name, date of , and squamous cell carcinoma right thumb short proximal, long radial is a circular, oriented skin excision with a short stitch indicating proximal margin and long stitch indicating radial margin. The short proximal margin is arbitrarily designated as 9:00, and the long radial margin is arbitrarily designated as 12:00. The specimen is 2.1 cm from 12-6 o'clock, 2.0 cm from 9-3 o'clock, with an average depth of 0.3 cm. There is a red-machado, roughened, and irregular ulcer. The remaining skin is machado-pink and focally roughened.Ulcer measurement: 1.1 x 1.0 cm. It is situated to the margins as follows:12:00: 0.4 cm3:00: 0.4 cm6:00: 0.7 cm9:00: 0.6 cm The 12:00 half is inked blue and the 6:00 half is inked black. The specimen is serially sectioned from 3:00 to 9:00 to reveal that the roughened ulcer appears confined to the epidermis. The remaining cut surfaces are white-pink and rubbery. The specimen is entirely submitted for frozen section analysis and the remaining remnants are submitted as follows:A1. 3:00 end, perpendicularA2. 9:00 end, perpendicularA3. Midportion of specimen A section diagram is made. [facility] 06-26-2024 CPT:57634,76365
[2024-06-26 07:36] VITALS: BP 136/72; O2SAT 94
[2024-06-26 07:38] VITALS: BP 140/79; O2SAT 97; O2SAT 98
[2024-06-26] MEDS: Lidocaine 1% /Epi 1:100 (20ml) 20 ML Vial (07:44)
[2024-06-26] MEDS: Bupiv/Epi 0.25% 30 ML Vial (07:44)
[2024-06-26 07:49] VITALS: BP 128/73; BP 129/77; BP 133/79; BP 137/75; BP 145/76; O2SAT 93; O2SAT 94; O2SAT 95
[2024-06-26 07:54] LABS: Bedside Glucose 224 mg/dL (74-106)
--- NOTE | 2024-06-26 08:14 | PCM.OPRPT ---
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 Type of Anesthesia: Local (10 cc of a 50/50 mixture of 0.25% Marcaine with 1:200,000 epinephrine and 1% lidocaine with 1:200,000 epinephrine ) RN Documented Start/Stop Times: Operation Date: 06/26/24 07:30 Case Time Into Pre-Op 06/26/24 06:01 Out of Pre-Op 06/26/24 07:20 Into Room 06/26/24 07:29 Anesthesia Start 06/26/24 07:48 Procedure Start 06/26/24 07:48 Procedure Start Time: 07:48 Procedure Stop Time: 08:25 Select all DRAINS/GRAFTS/IMPLANTS that apply: Tissue (Cadaver allograft) Tissue details: TheraSkin 39 cm?, split-thickness skin graft Estimated Blood Loss: 5 cc Specimen collected: Yes Description of specimen(s) removed: 2.5 x 2.7 cm excision (4 mm margins) Description of surgery: Indications: Patient is a delightful 68-year-old male who underwent a wedge biopsy in clinic of a right dorsal hand/thumb lesion that was determined to be squamous cell carcinoma in situ. I talked him about the options including medical treatments, curettage, and other alternatives such as Mohs surgery, but we also discussed wide local excision with 4 mm margins. He elected to go with wide local excision for definitive management (and deferred Mohs surgery). I talked him about the risks, benefits, and alternatives of these treatments. Procedure details: Patient was correct identified in preoperative holding and I marked the lesion with the patient present and he was in agreement. I priscila 4 mm margins around the lesion for excision. The patient was taken back to the operating room where he was administered local anesthesia as noted above. He was prepped and draped in sterile fashion. A 15 blade scalpel was used to cut circumferentially around the lesion on the dorsum of the right hand for an excision of 2.5 x 2.7 cm malignant lesion. Care was taken to be in the deep subcutaneous layer but preserve the branches of the superficial branch of the radial nerve (SBRN). Hemostasis was obtained with bipolar electrocautery. The specimen was oriented with short stitch proximal and long stitch radial. It was sent to pathology for frozen sections. The margins were clear. A piece of TheraSkin was then applied measuring 2.5 x 2.7 cm with a Xeroform and cotton bolster (tied down with 3-0 Vicryl sutures) to act as a temporary dressing while we await permanent sections and clearance for a skin graft. There was too much tension for primary closure and therefore the skin substitute and bolster had to be applied. Patient tolerated the procedure well. He was taken to the PACU in stable condition. Surgical Findings: Clear surgical margins on frozen sections. Too much tension for primary closure. Complications Complications: No Admit VTE Documentation VTE Mechan Device Prophylaxis: SCD's
[2024-06-26 08:53] VITALS: BP 134/87; BP 134/96; PULSE 62; RESP 16; TEMP 36.7; O2SAT 96
== END 2024-06-26 08:56 | disposition home or self-care (01) ==
LOC: SDC 05:53 → AC 05:54
PROVIDERS: PCP Family Medicine; Referring Provider Surgery Plastic and Reconstructive Surgery; Visit Provider Surgery Plastic and Reconstructive Surgery
PROC: (CPT 11626; principal; 2024-06-26 07:20)
DX: C76.41 Malignant neoplasm of right upper limb (principal); E11.9 Type 2 diabetes mellitus without complications; Z79.899 Other long term (current) drug therapy; Z79.84 Long term (current) use of oral hypoglycemic drugs; Z87.891 Personal history of nicotine dependence
CPT/HCPCS: 11626; 15240; 82962; 88305; 88331

== ENCOUNTER 2024-06-29 07:45 | Day surgery (SDC) | payer MEDICARE, OTHER, SELFPAY ==
[2024-06-29 08:11] VITALS: BP 136/73; PULSE 54; RESP 18; TEMP 36.6; O2SAT 99; BMI 30.2
[2024-06-29] MEDS: Cephalexin 500 MG Capsule PO (08:16)
--- NOTE | 2024-06-29 08:20 | PCM.HP.STD ---
HPI - General HPI Narrative REJI CURIEL, is a 68 M who presents with a right thumb wound after a SSC in situ lesion resection. Margins are clear. Presents today for STSG. Current Encounter (DATE OF SURGERY H&P UPDATE): I saw and examined the patient this morning in pre-operative holding. We discussed risks and benefits of today's surgery and they would like to proceed. NO CHANGE in health history since last seen and evaluated. Ready to proceed with surgery. [facility] Medical History (Updated 06/27/24 @ 11:34 by Amelia Morley) Skin cancer High blood pressure Diabetes Fatigue PND (post-nasal drip) Home Medications ?Medication ?Instructions ?Recorded ?Last Taken ?Type lisinopril 10 mg tablet (Zestril) 10 mg PO DAILY 03/28/17 06/26/24 History metformin 1,000 mg tablet 1,000 mg PO BID 03/28/17 06/26/24 History metoprolol succinate 50 mg 50 mg PO BID 03/28/17 06/26/24 History tablet,extended release 24 hr (Toprol XL) omega-3 fatty acids-fish oil 340 1 ea PO BID 03/28/17 Unknown History mg-1,000 mg capsule (Fish Oil) omeprazole 20 mg capsule,delayed 20 mg PO DAILY 03/28/17 06/25/24 History release simvastatin 80 mg tablet 80 mg PO DAILY 03/28/17 06/25/24 History clonazepam 1 mg tablet mg PO 06/06/24 Unknown History donepezil 10 mg tablet mg PO 06/06/24 06/26/24 History glimepiride 4 mg tablet mg PO 06/06/24 06/26/24 History nortriptyline 25 mg capsule mg PO 06/06/24 06/25/24 History sertraline 50 mg tablet mg PO 06/06/24 06/25/24 History sildenafil 50 mg tablet 50 mg PO Q24H 06/06/24 Unknown History oxycodone 5 mg tablet 5 mg PO BID PRN pain 5 days #10 06/26/24 Unknown Rx tabs Allergy/AdvReac Type Severity Reaction Status Date / Time No Known Allergies Allergy Verified 06/29/24 08:09 Social History Smoking Status: Former smoker Vital Signs Vital Signs Vital Signs: 06/29/24 08:11 06/29/24 08:11 Temperature 97.8 F Temperature Source Temporal Pulse Rate 54 L Respiratory Rate 18 Respiratory Pattern Normal Blood Pressure 136/73 H Blood Pressure Mean 94 Blood Pressure Source Monitor Blood Pressure Position Sitting Blood Pressure Location Right Arm Pulse Ox 99 Oxygen Delivery Method Room Air Weight Weight: 210 lb 5.136 oz Body Mass Index (BMI) 30.2 Physical Exam Narrative Left thumb bolster in place. No signs of infection. 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 Discussed risks, benefits, and alternatives to skin grafting. Understands risks of skin graft failure and donor site complications. Current Encounter (DATE OF SURGERY H&P UPDATE): I saw and examined the patient this morning in pre-operative holding. We discussed risks and benefits of today's surgery and they would like to proceed. NO CHANGE in health history since last seen and evaluated. Ready to proceed with surgery.
[2024-06-29 08:55] VITALS: BP 131/79; BP 133/81; O2SAT 95; O2SAT 96; O2SAT 97
--- NOTE | 2024-06-29 09:13 | PCM.OPRPT ---
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 Type of Anesthesia: Local (20 cc of 50/50 mixture of 0.25% Marcaine with 1:200,000 epinephrine and 1% lidocaine with 1:200,000 epinephrine ) RN Documented Start/Stop Times: Operation Date: 06/29/24 08:50 Case Time Into Pre-Op 06/29/24 07:51 Out of Pre-Op 06/29/24 08:46 Into Room 06/29/24 08:55 Procedure Start 06/29/24 09:17 Procedure End 06/29/24 09:42 Out of Room 06/29/24 09:48 Into Phase II Recovery 06/29/24 09:55 Out of Phase II 06/29/24 10:18 Procedure Start Time: 09:17 Procedure Stop Time: 09:42 Select all DRAINS/GRAFTS/IMPLANTS that apply: None Estimated Blood Loss: 5 cc Specimen collected: No Description of surgery: Indications: Monroe Eldridge is a delightful 5-year-old male who underwent squamous cell carcinoma in situ excision from the hand/thumb dorsum on the right side on 26 Jun 2024. Permanent pathology was clear of residual squamous cell carcinoma in situ. He presents today for full-thickness skin grafting. I talked him about the risk benefits and alternatives to this procedure and he elected to proceed. Procedure details: Patient was correct identified in preoperative holding and marked. He was taken back to the operating room where he was administered the above-noted local anesthesia to the dorsum of the RIGHT hand and to the RIGHT ulnar forearm where we were planning to take the skin graft. He was given time to take effect and he was prepped and draped in sterile fashion and the bolster was removed. The allograft was stuck down well and kept the wound bed moist and ready for reconstruction. A rasp was used to gently remove any biofilm and excess tissue from the dorsal hand wound and the wound was irrigated with 450 cc of Irrisept and copious amounts of normal saline. It was ready for skin grafting. The wound measured 2.5 x 2.7 cm. A full-thickness skin graft was harvested from the ulnar forearm measuring 2.5 x 2.7 cm. The donor site was closed with 3-0 Vicryl deep dermal followed by 3-0 Monocryl running subcuticular sutures and Prineo tape. All fat was removed from the skin graft and it was placed to the wound bed after being perforated on the back table to prevent fluid collections with a 15 blade scalpel. The full-thickness skin graft was then bolstered down with 3-0 Vicryl sutures, a moist cottonball and a Xeroform. Patient tolerated the procedure well. He wa taken to the PACU in stable conditions . Postoperative plan: Bolster remains for 1 week and we will remove it in clinic in 1 week and examine the skin graft. Prineo tape will fall off on its own will trim the edges as needed. Surgical Findings: Healthy wound bed following allograft placement as temporary dressing. Ready for skin graft. Allograft completely removed and discarded. Complications Complications: No
[2024-06-29] MEDS: Lidocaine 1% /Epi 1:100 (20ml) 20 ML Vial (09:18)
[2024-06-29] MEDS: Bupiv/Epi 0.25% 30 ML Vial (09:18)
[2024-06-29 10:04] VITALS: BP 134/70; PULSE 56; RESP 16; TEMP 36.6; O2SAT 98
== END 2024-06-29 10:18 | disposition home or self-care (01) ==
LOC: SDC 07:46 → AC 07:47
PROVIDERS: PCP Family Medicine; Referring Provider Surgery Plastic and Reconstructive Surgery; Visit Provider Surgery Plastic and Reconstructive Surgery
PROC: (CPT 15240; principal; 2024-06-29 08:40)
DX: C76.41 Malignant neoplasm of right upper limb (principal); E11.9 Type 2 diabetes mellitus without complications; Z79.899 Other long term (current) drug therapy; Z79.84 Long term (current) use of oral hypoglycemic drugs; Z87.891 Personal history of nicotine dependence
CPT/HCPCS: 15240

== ENCOUNTER 2024-07-06 15:36 | Emergency (ER) | payer MEDICARE, OTHER, SELFPAY ==
[2024-07-06 15:37] VITALS: BP 144/112; PULSE 79; RESP 16; TEMP 36.8; O2SAT 99; BMI 28.4
--- NOTE | 2024-07-06 15:52 | EX.ED.DYSGE1 ---
HPI History of Present Illness Chief Complaint: General Illness Informant: patient Onset/Context/Timing Onset: Weeks (1) Context: Gradual Onset Timing: Intermittent Quality: Burning Location: Upper abdomen Worsened by: Eating, drinking Relieved by: Nothing Narrative Narrative: Patient presents with nausea and vomiting that has been getting worse over the past week. Patient states it is gradually getting worse. Patient denies any hematemesis or coffee-ground emesis. Patient states his vomiting is just stomach contents. Patient admits to chronic diarrhea but denies any melena or hematochezia. Patient admits to some mild burning pain in his abdomen. Patient states that it comes and goes. Patient states his nausea and vomiting gets worse with eating or drinking. Patient states he is able to keep down some small amounts of fluids. Patient had a follow-up appointment with his plastic surgeon today who recommended that he come to the emergency department for evaluation of dehydration. [facility] Medical History (Updated 07/06/24 @ 17:[address] 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 Skin cancer High blood pressure Diabetes Fatigue PND (post-nasal drip) Home Medications ?Medication ?Instructions ?Recorded ?Last Taken ?Type metformin 1,000 mg tablet 1,000 mg PO BID 03/28/17 06/26/24 History metoprolol succinate 50 mg 25 mg PO BID 03/28/17 06/26/24 History tablet,extended release 24 hr (Toprol XL) omeprazole 20 mg capsule,delayed 20 mg PO DAILY 03/28/17 06/25/24 History release simvastatin 80 mg tablet 80 mg PO DAILY 03/28/17 06/25/24 History clonazepam 1 mg tablet 1 mg PO BID PRN 06/06/24 Unknown History donepezil 10 mg tablet 10 mg PO DAILY 06/06/24 06/26/24 History glimepiride 4 mg tablet 4 mg PO DAILY 06/06/24 06/26/24 History nortriptyline 25 mg capsule mg PO 06/06/24 06/25/24 History sertraline 50 mg tablet 150 mg PO Q24H 06/06/24 06/25/24 History sildenafil 50 mg tablet 50 mg PO Q24H 06/06/24 Unknown History oxycodone 5 mg tablet 5 mg PO BID PRN pain 5 days #10 06/26/24 Unknown Rx tabs diphenoxylate-atropine 2.5 1 - 2 tab PO BID 07/06/24 Unknown History mg-0.025 mg tablet finasteride 5 mg tablet 5 mg PO DAILY 07/06/24 Unknown History lisinopril 20 mg tablet 20 mg PO DAILY 07/06/24 Unknown History ondansetron 4 mg disintegrating 4 mg PO Q8H PRN PRN Nausea #10 tabs 07/06/24 Unknown Rx tablet propranolol 40 mg tablet 40 mg PO BID 07/06/24 Unknown History tamsulosin 0.4 mg capsule 0.4 mg PO Q24H 07/06/24 Unknown History Allergy/AdvReac Type Severity Reaction Status Date / Time No Known Allergies Allergy Verified 07/06/24 15:37 Surgical History (Updated 07/06/24 @ 16:[address] Braxton Crowley, ) Status post surgical removal of malignant neoplasm of skin Hx of umbilical hernia repair Social History Smoking Status: Former smoker ROS ROS ED Constitutional Constitutional ED: Denies chills or fever(s) Eyes Eyes: Denies blurry vision or change in vision ENT ENT ED: Denies rhinorrhea or sore throat Cardiovascular Cardiovascular: Denies chest pain or palpitations Respiratory/Chest Respiratory/Chest: Denies cough or dyspnea Gastrointestinal Gastrointestinal: Reports abdominal pain, diarrhea, nausea and vomiting; Denies melena Genitourinary Genitourinary ED: Denies dysuria or hematuria Musculoskeletal Musculoskeletal: Reports back pain; Denies neck pain Integumentary Denies abscess or rash Neurologic Neurologic: Denies headache(s) or weakness Allergic/Immunologic Allergic/Immunologic ED: Denies mouth swelling or urticaria EXAM Physical Exam Const Vital Signs: 07/06/24 15:37 07/06/24 16:06 07/06/24 17:12 Temperature 98.2 F 98.1 F Temperature Source Oral Pulse Rate 79 65 Respiratory Rate 16 18 Respiratory Effort Normal Non-Labored Respiratory Pattern Normal Blood Pressure 144/112 H 129/96 H Blood Pressure Mean 122 107 Pulse Ox 99 97 Oxygen Delivery Method Room Air Positive well nourished and well developed General Appearance ED: well developed and NAD HEENT Reports moist mucous membranes Neck supple and no JVD Resp normal respiratory effort and clear to auscultation bilaterally Cardio regular rate and regular rhythm GI non-tender and non-distended Palpation: soft Neuro oriented x3, CN's II-XII intact bilaterally and no sensory deficits noted Sensorium / Orientation: alert Motor Exam: strength 5/5 throughout Psych mental status grossly normal Skin Skin Narrative: The surgical site on the dorsal aspect of the right hand appears to be healing well. There are no signs of infection. MDM MDM MDM Narrative Medical decision making narrative: Differential diagnosis includes dehydration, viral illness, electrolyte abnormality, pancreatitis, and gastroenteritis. CBC will be obtained to assess for leukocytosis and anemia. Comprehensive metabolic profile will be obtained to assess for electrolyte abnormality, renal function, and hepatic functions. Lipase will be obtained to assess for pancreatitis. History & Record Review Additional record(s) reviewed:: Prior outpatient record, Prior ED visit and Prior labs Lab Data Attestation: I reviewed the patient's lab results. Lab results narrative: CBC was reviewed and was within normal limits. Comprehensive metabolic profile was reviewed and was essentially within normal limits with the exception of a mildly elevated glucose of 143. Lipase was reviewed and was normal at 32. Labs: Laboratory Results - last 24 hr 07/06/24 16:05 WBC 10.6 RBC 5.03 Hgb 14.7 Hct 42.5 MCV 84.5 MCH 29.2 MCHC 34.6 RDW Std Deviation 39.9 RDW Coeff of Aneesh 13.0 Plt Count 211 MPV 11.4 Immature Gran % (Auto) 0.500 Neut % (Auto) 68.0 Lymph % (Auto) 23.6 Mathews % (Auto) 6.7 Eos % (Auto) 0.8 Baso % (Auto) 0.4 Absolute Neuts (auto) 7.3 Absolute Lymphs (auto) 2.51 Nucleated RBC % 0 Sodium 138 Potassium 4.1 Chloride 98 Carbon Dioxide 25.5 Anion Gap 15 BUN 15 Creatinine 1.06 Estim Creat Clear Calc 73.12 Est GFR (MDRD) Non-Af 75 BUN/Creatinine Ratio 14.0 Glucose 143 H Calcium 10.0 Total Bilirubin 0.61 AST 34 ALT 46 Alkaline Phosphatase 72 Total Protein 7.8 Albumin 4.6 Globulin 3.2 Albumin/Globulin Ratio 1.4 Lipase 32 Treatment and Re-Evaluation :: Patient was given fluids. Patient was advised of his findings. Patient was feeling better on reevaluation. Patient was given a prescription for Zofran. Patient was instructed to start with liquids and advance as tolerated. Patient was instructed to follow-up with his primary care physician in 5 to 7 days. Patient was instructed to return if worse in any way. Patient understood and was agreeable with the plan. All questions were answered. Discharge Plan Triage Chief Complaint: General Illness ED Provider: Braxton Crowley Dx/Rx/DC Orders Clinical Impression: Nausea and vomiting, Mild dehydration Instructions: ED Vomiting (Adult) Prescriptions: New ondansetron 4 mg tablet,disintegrating 4 mg PO Q8H PRN PRN (Reason: Nausea) Qty: 10 0RF No Action sertraline 50 mg tablet 150 mg PO Q24H Patient Comments: TAKE 3 TABLETS BY MOUTH DAILY clonazepam 1 mg tablet 1 mg PO BID PRN Patient Comments: TAKE 1 TABLET BY MOUTH TWICE DAILY donepezil 10 mg tablet 10 mg PO DAILY glimepiride 4 mg tablet 4 mg PO DAILY Patient Comments: TAKE 1 TABLET BY MOUTH DAILY sildenafil 50 mg tablet 50 mg PO Q24H Patient Comments: TAKE 1 TABLET BY MOUTH DAILY NEEDED nortriptyline 25 mg capsule PO Patient Comments: TAKE 1 CAPSULE BY MOUTH EVERY NIGHT AT BEDTIME metoprolol succinate [Toprol XL] 50 MG tablet extended release 24 hr 25 mg PO BID simvastatin 80 MG tablet 80 mg PO DAILY metformin 1,000 MG tablet 1,000 mg PO BID omeprazole 20 MG capsule 20 mg PO DAILY oxycodone 5 mg tablet 5 mg PO BID PRN (Reason: pain) 5 Days Qty: 10 0RF tamsulosin 0.4 mg capsule 0.4 mg PO Q24H lisinopril 20 mg tablet 20 mg PO DAILY propranolol 40 mg tablet 40 mg PO BID finasteride 5 mg tablet 5 mg PO DAILY diphenoxylate-atropine 2.5-0.025 mg tablet 1 - 2 tab PO BID Primary Care Provider: Adam Mcconnell Referrals: Adam Mcconnell MD [Primary Care Provider] - 5-7 Days Print Language: Malawian Disposition Disposition: Home, Self Care Discharge Date/Time: 07/06/24 17:13
[2024-07-06] MEDS: 0.9% Normal Saline (1000mL) 1,000 ML 1000 ML IV (16:00)
[2024-07-06] MEDS: Ondansetron 4 MG/2 ML Vial IV (16:15)
[2024-07-06 16:22] LABS: Absolute Lymphocyte Count 2.51 X10^3/uL (0.83-4.51); Absolute Neutrophil Count 7.3 X10^3/uL (2.0-7.7); Basophil# 0.04 X10^3/uL; Basophil% 0.4 % (0-1); Eosinophil# 0.08 X10^3/uL; Eosinophils% 0.8 % (0-5); Hematocrit 42.5 % (40-54); Hemoglobin 14.7 g/dL (13.0-16.5); Lymphocyte # 2.51 X10^3/ul (0.83-4.51); Lymphocyte % 23.6 % (19-41); Mean Corp Hgb Conc 34.6 g/dL (32-36); Mean Corpuscular Hgb 29.2 pg (27.0-32.0); Mean Corpuscular Volume 84.5 fL (80-94); Mean Platelet Vol. 11.4 fl (6.2-12.0); Monocyte# 0.71 X10^3/uL; Monocyte% 6.7 % (0-10); NRBC Flagged by Analyzer 0 % (0-5); Neutrophil # 7.25 X10^3/uL (2.7-7.7); Platelet Count 211 K/mm3 (150-450); RBC Distribution Width SD 39.9 fl (35.1-43.9); Red Blood Count 5.03 M/mm3 (4.6-6.2); White Blood Count 10.6 K/mm3 (4.4-11.0)
[2024-07-06 16:47] LABS: ALB/GLOB Ratio 1.4 RATIO (0.9-2.4); AST(SGOT) 34 U/L (<=37); Alanine Aminotransfer ALT/SGPT 46 U/L (<=46); Albumin, Serum 4.6 g/dL (3.4-4.8); Alkaline Phosphatase 72 U/L (40-129); Anion Gap 15 (5-15); BUN 15 mg/dL (4-19); Carbon Dioxide 25.5 mmol/L (21.0-32.0); Chloride 98 mmol/L (98-108); Creatinine, Serum 1.06 mg/dL (0.70-1.20); EST Glomerular Filtration Rate 75 (>60); Estimated Creatinine Clearance 73.12 ml/min (50-250); Globulin 3.2 g/dL (2.2-4.2); Glucose 143 mg/dL (70-99); Lipase 32 U/L (13-75); Potassium 4.1 mmol/L (3.3-5.1); Protein, Total 7.8 g/dL (5.9-8.4); Sodium Level 138 mmol/L (133-145); Total Bilirubin 0.61 mg/dL (0.00-1.30)
[2024-07-06 17:12] VITALS: BP 129/96; PULSE 65; RESP 18; TEMP 36.7; O2SAT 97
== END 2024-07-06 17:13 | disposition home or self-care (01) ==
PROVIDERS: Emergency Provider Emergency Medicine; PCP Family Medicine; Visit Provider Emergency Medicine
DX: R11.2 Nausea with vomiting, unspecified (principal); E11.9 Type 2 diabetes mellitus without complications; E86.0 Dehydration; Z87.891 Personal history of nicotine dependence; Z79.84 Long term (current) use of oral hypoglycemic drugs; Z79.899 Other long term (current) drug therapy
CPT/HCPCS: 80053; 83690; 85025; 96361; 96374; 96376; 99283; A4216; J2405

== ENCOUNTER → 2024-11-22 | Outpatient (CLI) | payer MEDICARE, OTHER, SELFPAY ==
[2024-11-22 10:49] LABS: PSA,Total- Diagnostic 6.11 ng/mL (0.00-4.00)
== END | disposition home or self-care (01) ==
PROVIDERS: PCP Family Medicine; Referring Provider Urology; Visit Provider Urology
DX: N40.1 Benign prostatic hyperplasia with lower urinary tract symptoms (principal)
CPT/HCPCS: 36415; 84153

== ENCOUNTER → 2024-12-12 | Outpatient (CLI) | payer MEDICARE, OTHER, SELFPAY ==
--- NOTE | 2024-12-12 11:02 | MRI_ITS ---
EXAM: PELVIS W/WO CONTRAST 12/12/2024 CLINICAL HISTORY: ELEVATED PROSTATE SPECIFIC ANTIGEN. TECHNIQUE: Procedure Code: [id number] Modality: MR Procedure: PELVIS W/WO CONTRAST Multiplanar and multisequence images were obtained without and with intravenous gadolinium contrast. CONTRAST: Clariscan VOLUME: 19 mL COMPARISON: None relevant FINDINGS: PSA: 6.11 g per mL/mL Prostate size: 4.7 x 5.5 x 4.6 cm, estimated volume 75.275 mL. Per the above provided PSA, PSA density is 0.08 ng/mL/mL. Transition zone: PI-RADS 2 findings. Benign prostatic hyperplasia with benign- appearing well-circumscribed nodules. *Lesion none. *T2 score: 2; mostly encapsulated nodule or a homogeneous circumscribed nodule without encapsulation, or a homogeneous mildly hypointense area between nodules. *DWI score: 1; no abnormality on ADC or high b-value DWI. *DCE: Negative. *Overall PI-RADS: PI-RADS 2. *Extracapsular extension:No gross extracapsular extension. Peripheral Zone: Background changes of likely prostatitis (PI-RADS 2). *Lesion none. *T2 score: 2; linear or wedge-shaped hypointensity or diffuse mild hypointensity, usually indistinct margin. *DWI score: 1; no abnormality on ADC or high b-value DWI. *DCE: Negative. *Overall PI-RADS: PI-RADS 2. *Extracapsular extension:No gross extracapsular extension. Neurovascular bundles: Unremarkable. Seminal vesicles: Unremarkable. Bladder: Underdistended and suboptimally evaluated, grossly unremarkable. Lymph nodes: Unremarkable. Bones: No destructive or frankly suspicious bony lesions identified on nondedicated evaluation. Other: None. MRI/Pelvis W/WO Contrast IMPRESSION: Benign prostatic hyperplasia. Prostatitis. No suspicious nodule. PI-RADS 2 low risk. Clinically significant cancer is unlikely to be present. Reading Location: [facility]
== END | disposition home or self-care (01) ==
LOC: OPMRI 11:00
PROVIDERS: PCP Family Medicine; Referring Provider Urology; Visit Provider Urology
DX: R97.20 Elevated prostate specific antigen [PSA] (principal)
CPT/HCPCS: 72197; A9575; A4216